=== PATIENT | male | born 1970 | race Caucasian/White ===

== ENCOUNTER 2018-10-01 13:06 | Observation (INO) ==
[2018-10-01] MEDS ORDERED: Ondansetron 4 MG/2 ML VIAL IVP ONE ×2 (13:23→16:21)
[2018-10-01] MEDS ORDERED: 0.9 % Sodium Chloride 1,000 ML IVC ONE (13:23)
[2018-10-01] MEDS ORDERED: *HR* Morphine 2 MG/ML SYRINGE IVP ONE (13:23)
[2018-10-01] MEDS ORDERED: Isovue-370 500 ML BOTTLE IVP ONE (13:24)
[2018-10-01 13:43] LABS: Basophils # 0.1 K/mcL (0.0-0.2); Basophils % 0.3 %; Eosinophils # 0.1 K/mcL (0.0-0.6); Eosinophils % 0.4 %; Hematocrit 42.8 % (37.5-50.1); Hemoglobin 14.1 g/dL (12.9-16.9); Immature Granulocytes % 0.5 % (0-4); Lymphocytes # 2.7 K/mcL (0.6-4.6); Lymphocytes % 17.5 %; Mean Corpuscular HGB Conc 32.9 g/dL (31.6-35.5); Mean Corpuscular Hemoglobin 28.7 pg (28.0-33.3); Mean Corpuscular Volume 87.2 fL (83.0-100.0); Mean Platelet Volume 10.4 fL (9.4-12.4); Monocytes # 1.5 K/mcL (0.0-1.3); Monocytes % 9.8 %; Platelet Count 191 K/mcL (140-400); Red Blood Count 4.91 M/mcL (4.19-5.50); Red Cell Distribution Width 12.1 % (11.5-14.5); Segmented Neutrophils % 71.5 %
[2018-10-01 14:07] LABS: Alanine Aminotransferase 17 Units/L (7-52); Albumin 3.8 g/dL (3.5-5.7); Albumin/Globulin Ratio 1.3 (1.1-2.2); Alkaline Phosphatase 68 Units/L (34-104); Aspartate Amino Transferase 20 Units/L (13-39); BUN/Creatinine Ratio 19 (6-26); Bilirubin,Direct 0.2 mg/dL (0.0-0.2); Bilirubin,Indirect 0.4 mg/dL (0.0-1.2); Bilirubin,Total 0.6 mg/dL (0.3-1.0); Blood Urea Nitrogen 17 mg/dL (6-20); Calcium 8.7 mg/dL (8.6-10.3); Carbon Dioxide 26 mEq/L (23-29); Chloride 101 mEq/L (98-107); Globulin 2.9 g/dL (2.4-3.5); Glucose 119 mg/dL (70-105); Osmolality,Calculated 287 (280-300); Potassium 3.6 mEq/L (3.5-5.1); Sodium 137 mEq/L (136-145); Total Protein 6.7 g/dL (6.4-8.9); eGFR For Non-African Americans > 60 (> 60)
[2018-10-01 14:34] LABS: Bilirubin,Urine Small (Negative); Blood,Urine Negative (Negative); Color,Urine Dark Yellow (Yellow); Glucose,Urine (UA) Normal (Normal); Ketones,Urine Trace mg/dL (Negative); Leukocyte Esterase,Urine Negative (Negative); Nitrite,Urine Negative (Negative); Protein,Urine 30 mg/dL (Neg-Trace); Specific Gravity,Urine > 1.030 (1.010-1.025)
[2018-10-01 14:36] LABS: Bacteria,Urine None Seen per hpf (None-Few); Hyaline Casts,Urine None Seen per lpf (None-Few); RBC,Urine 0-3 per hpf (0-3); Squamous Epithelial Cell,Urine Many per lpf (None-Few); WBC,Urine 0-3 per hpf (0-3)
[2018-10-01 14:38] LABS: Clarity,Urine Slightly Hazy (Clear)
[2018-10-01 14:50] LABS: Calcium Oxalate Crystals,Urine Present; Mucus,Urine Moderate (Few)
[2018-10-01 14:51] LABS: Lipase 8 Units/L (11-82)
--- NOTE | 2018-10-01 14:53 | Emergency Department Note ---
Disposition Clinical Impression: Appendicitis with perforation Disposition: Admitted As Inpatient Condition: Good Time of Disposition: 22:34 Abdominal Pain HPI - General Chief Complaint: ED Abdominal Pain Stated Complaint: Possible Appendicitis Time Seen by Provider: 10/01/18 13:11 Source: patient Mode of arrival: ambulatory Limitations: no limitations Nursing Notes Reviewed: Yes Vital Signs Reviewed: Yes - History of Present Illness HPI Narrative: Patient presenting to the ED with right-sided abdominal pain. Onset was about 48 hours ago. Describes it as sharp, stabbing, located in his right lower quadrant. Movement seems to make it worse. No fever or chills. No chest pain or shortness breath. No previous abdominal surgeries. He is otherwise healthy. Denies taking any medications. No urinary complaints. No diarrhea or constipation. States he also has some pain in his right upper quadrant. Normal appetite. Pain Scale: 0 - Related Data Allergies Allergy/AdvReac Type Severity Reaction Status Date / Time No Known Allergies Allergy Verified 10/01/18 13:11 Review of Systems: As reviewed in the HPI. All other systems reviewed are negative or normal. Abdominal Pain PMH - Past Medical History Medical history: Reports: no medical history Male Surgical History: Reports: orthopedic, other Psychiatric history: Reports: no psych history - Social History Smoking status: Current every day smoker Alcohol use: Reports: occasionally Drug use: Reports: none Physical Exam EYES: [EOMI, clear conjunctiva, PERRLA] HENT: [Normocephalic, atraumatic, moist mucus membranes, normal oropharynx] NECK: [normal inspection, full ROM, trachea midline, no obvious swelling] PULMONARY: [normal lung sounds bilaterally, normal chest rise and fall, no respiratory distress or stridor, no wheezes, no rales, no rhonchi CARDIOVASCULAR: [regular rate, regular rhythm, normal heart sounds, no murmurs, distal extremities are warm and well perfused] GASTROINSTESTINAL: [soft, moderately tender in the right lower quadrant with guarding, non-rigid, non-distended, no guarding, no rebound, normal bowel sounds] GENITOURINARY/RECTAL: [deferred] NEUROLOGIC: [Alert, oriented x3, normal speech, moves all extremities] EXTREMITIES: [Normal inspection, full ROM, no tenderness, no pedal edema, normal capillary refill] MUSCULOSKELETAL: [no gross deformities, atraumatic] SKIN: [No cyanosis, no diaphoresis, normal color, warm, no rash] PSYCHIATRIC: [normal mood and affect] - General General appearance: alert Course Course Narrative: CT scan shows microperforated appendicitis without abscess. He is more comfortable after medication. Was given a dose of Zosyn and we will speak with the on-call acute-care surgeon. Vital Signs Temperature 98.5 F 10/01/18 13:10 Pulse Rate 132 10/01/18 13:10 Respiratory Rate 18 10/01/18 13:10 Blood Pressure 125/82 10/01/18 13:10 O2 Sat by Pulse Oximetry 97 10/01/18 13:10 Temperature 98.4 F 10/01/18 22:04 Pulse Rate 95 10/01/18 22:04 Respiratory Rate 16 10/01/18 22:04 Blood Pressure 109/67 10/01/18 22:04 O2 Sat by Pulse Oximetry 92 10/01/18 22:04 Oxygen Delivery Oxygen Delivery Room Air Abdominal Pain - Lab Data Result diagrams: 10/01/18 13:28 10/01/18 13:28 Lab Results 10/01/18 10/01/18 10/01/18 Range/Units 13:28 13:28 14:24 WBC 15.4 H (4.3-11.1) K/mcL RBC 4.91 (4.19-5.50) M/mcL Hgb 14.1 (12.9-16.9) g/dL Hct 42.8 (37.5-50.1) % MCV 87.2 (83.0-100.0) fL MCH 28.7 (28.0-33.3) pg MCHC 32.9 (31.6-35.5) g/dL RDW 12.1 (11.5-14.5) % Plt Count 191 (140-400) K/mcL MPV 10.4 (9.4-12.4) fL Immature Gran % 0.5 (0-4) % Seg Neutrophils % 71.5 % Lymphocytes % 17.5 % Monocytes % 9.8 % Eosinophils % 0.4 % Basophils % 0.3 % Neutrophils # 11.0 H (1.6-8.9) K/mcL Lymphocytes # 2.7 (0.6-4.6) K/mcL Monocytes # 1.5 H (0.0-1.3) K/mcL Eosinophils # 0.1 (0.0-0.6) K/mcL Basophils # 0.1 (0.0-0.2) K/mcL Sodium 137 (136-145) mEq/L Potassium 3.6 (3.5-5.1) mEq/L Chloride 101 (98-107) mEq/L Carbon Dioxide 26 (23-29) mEq/L BUN 17 (6-20) mg/dL Creatinine 0.89 (0.70-1.30) mg/dL Est GFR ( Amer) > 60 (> 60) Est GFR (Non-Af Amer) > 60 (> 60) BUN/Creatinine Ratio 19 (6-26) Glucose 119 H (70-105) mg/dL Calculated Osmolality 287 (280-300) Calcium 8.7 (8.6-10.3) mg/dL Total Bilirubin 0.6 (0.3-1.0) mg/dL Direct Bilirubin 0.2 (0.0-0.2) mg/dL Indirect Bilirubin 0.4 (0.0-1.2) mg/dL AST 20 (13-39) Units/L ALT 17 (7-52) Units/L Alkaline Phosphatase 68 (34-104) Units/L Serum Total Protein 6.7 (6.4-8.9) g/dL Albumin 3.8 (3.5-5.7) g/dL Globulin 2.9 (2.4-3.5) g/dL Albumin/Globulin Ratio 1.3 (1.1-2.2) Lipase 8 L (11-82) Units/L Urine Color Dark Yellow (Yellow) Urine Clarity Slightly Hazy (Clear) Urine pH 6.0 (5.0-8.0) pH Units Ur Specific [place] > 1.030 H (1.010-1.025) Urine Protein 30 H (Neg-Trace) mg/dL Urine Glucose (UA) Normal (Normal) mg/dL Urine Ketones Trace H (Negative) mg/dL Urine Blood Negative (Negative) Urine Nitrite Negative (Negative) Urine Bilirubin Small H (Negative) Urine Urobilinogen 2.0 H (Normal) mg/dL Ur Leukocyte Esterase Negative (Negative) Urine Microscopic RBC 0-3 (0-3) per hpf Urine Microscopic WBC 0-3 (0-3) per hpf Ur Squamous Epith Cells Many H (None-Few) per lpf Calcium Oxalate Crystal Present Urine Bacteria None Seen (None-Few) per hpf Hyaline Casts None Seen (None-Few) per lpf Urine Mucus Moderate H (Few) Ur Culture Indicated? NO (NO)
[2018-10-01] MEDS ORDERED: Piperacillin/Tazobactam 3.375 GM in Water for inj. (sterile) 20 ML 20 ML IVP ONE (15:07)
--- NOTE | 2018-10-01 15:34 | Emergency Department Note ---
Disposition Clinical Impression: Appendicitis with perforation Disposition: Admitted As Inpatient Condition: Good Referrals: NONE,PCP [Primary Care Provider] - Forms: ED Satisfaction Letter, Work/School Release Time of Disposition: 15:34 General Adult HPI - General Chief complaint: ED Abdominal Pain Stated complaint: Possible Appendicitis Time Seen by Provider: 10/01/18 13:11 Source: patient Mode of arrival: ambulatory Limitations: no limitations - History of Present Illness Pain Scale: 8 - Related Data Allergies Allergy/AdvReac Type Severity Reaction Status Date / Time No Known Allergies Allergy Verified 10/01/18 13:11 Past Medical History - Past Medical History Medical history: Reports: no medical history Psychiatric history: Reports: no psych history - Social History Smoking Status: Current every day smoker Smokeless Tobacco Status: No Alcohol use: Reports: occasionally Drug use: Reports: none Physical Exam - General Limitations: no limitations General appearance: alert Course Vital Signs Temperature 98.5 F 10/01/18 13:10 Pulse Rate 132 10/01/18 13:10 Respiratory Rate 18 10/01/18 13:10 Blood Pressure 125/82 10/01/18 13:10 O2 Sat by Pulse Oximetry 97 10/01/18 13:10 Temperature 98.5 F 10/01/18 13:16 Pulse Rate 86 10/01/18 15:23 Respiratory Rate 16 10/01/18 15:23 Blood Pressure 97/68 10/01/18 15:23 O2 Sat by Pulse Oximetry 96 10/01/18 15:23 Oxygen Delivery Oxygen Delivery Room Air Medical Decision Making - Lab Data Result diagrams: 10/01/18 13:28 10/01/18 13:28 Lab Results 10/01/18 10/01/18 10/01/18 Range/Units 13:28 13:28 14:24 WBC 15.4 H (4.3-11.1) K/mcL RBC 4.91 (4.19-5.50) M/mcL Hgb 14.1 (12.9-16.9) g/dL Hct 42.8 (37.5-50.1) % MCV 87.2 (83.0-100.0) fL MCH 28.7 (28.0-33.3) pg MCHC 32.9 (31.6-35.5) g/dL RDW 12.1 (11.5-14.5) % Plt Count 191 (140-400) K/mcL MPV 10.4 (9.4-12.4) fL Immature Gran % 0.5 (0-4) % Seg Neutrophils % 71.5 % Lymphocytes % 17.5 % Monocytes % 9.8 % Eosinophils % 0.4 % Basophils % 0.3 % Neutrophils # 11.0 H (1.6-8.9) K/mcL Lymphocytes # 2.7 (0.6-4.6) K/mcL Monocytes # 1.5 H (0.0-1.3) K/mcL Eosinophils # 0.1 (0.0-0.6) K/mcL Basophils # 0.1 (0.0-0.2) K/mcL Sodium 137 (136-145) mEq/L Potassium 3.6 (3.5-5.1) mEq/L Chloride 101 (98-107) mEq/L Carbon Dioxide 26 (23-29) mEq/L BUN 17 (6-20) mg/dL Creatinine 0.89 (0.70-1.30) mg/dL Est GFR ( Amer) > 60 (> 60) Est GFR (Non-Af Amer) > 60 (> 60) BUN/Creatinine Ratio 19 (6-26) Glucose 119 H (70-105) mg/dL Calculated Osmolality 287 (280-300) Calcium 8.7 (8.6-10.3) mg/dL Total Bilirubin 0.6 (0.3-1.0) mg/dL Direct Bilirubin 0.2 (0.0-0.2) mg/dL Indirect Bilirubin 0.4 (0.0-1.2) mg/dL AST 20 (13-39) Units/L ALT 17 (7-52) Units/L Alkaline Phosphatase 68 (34-104) Units/L Serum Total Protein 6.7 (6.4-8.9) g/dL Albumin 3.8 (3.5-5.7) g/dL Globulin 2.9 (2.4-3.5) g/dL Albumin/Globulin Ratio 1.3 (1.1-2.2) Lipase 8 L (11-82) Units/L Urine Color Dark Yellow (Yellow) Urine Clarity Slightly Hazy (Clear) Urine pH 6.0 (5.0-8.0) pH Units Ur Specific [place] > 1.030 H (1.010-1.025) Urine Protein 30 H (Neg-Trace) mg/dL Urine Glucose (UA) Normal (Normal) mg/dL Urine Ketones Trace H (Negative) mg/dL Urine Blood Negative (Negative) Urine Nitrite Negative (Negative) Urine Bilirubin Small H (Negative) Urine Urobilinogen 2.0 H (Normal) mg/dL Ur Leukocyte Esterase Negative (Negative) Urine Microscopic RBC 0-3 (0-3) per hpf Urine Microscopic WBC 0-3 (0-3) per hpf Ur Squamous Epith Cells Many H (None-Few) per lpf Calcium Oxalate Crystal Present Urine Bacteria None Seen (None-Few) per hpf Hyaline Casts None Seen (None-Few) per lpf Urine Mucus Moderate H (Few) Ur Culture Indicated? NO (NO) Attestation Statement - Attestation Attestation: I examined this patient and my medical decision-making was reviewed with the Resident Physician. I agree with the documented findings, disposition and treatment plan as described except to the extent set forth below. 48 year old male presents to the eD with complaints of RLQ pain and it appears that he still has a his appendix and ABCT shows a microperforation with apendicitis. He is in acute pain and pain controlled with opiates, blood pressure responding to IVF. Discussed case with Dr. You and he has accepted patient to surgical service. Gladys started
--- NOTE | 2018-10-01 15:52 | Acute Care Surgery H&P ---
Date of Encounter: 10/01/18 Time of Encounter: 15:40 Assessment and Plan (1) Appendicitis with perforation Current Visit: Yes Status: Acute The assessment and plan as outlined above was discussed with the patient and/or family members who expressed understanding and agreement. All questions were answered. The patient has acute appendicitis for at least 3 days. There appears to be evidence of perforation of the appendix. The appendix is discrete on CAT scan and I feel this is amenable to surgical resection. We will plan urgent laparoscopic appendectomy Beni You MD FACS History of Present Illness Chief complaint: Abdominal pain HPI: Mr. Lundy is a 48 year old male Who is been experiencing abdominal pain since Wednesday. Filled very poorly and stayed home from work on and Wednesday. The pain simply was unrelenting and he sought evaluation in the emergency room today. He is anorexic. He had some initial nausea but no vomiting. He has pain with motion area he has localized pain to the right lower quadrant. Upon evaluation in the emergency room he was found to have a significant leukocytosis and CAT scan evidence of perforated appendicitis with no abscess formation to my evaluation of the CAT scan the appendix is discrete and amenable to appendectomy. I have recommended urgent laparoscopic appendectomy with irrigation of the abdominal cavity and pelvis. Past Med Surg Social Fam HX - Past Medical History Medical history: no medical history Psychiatric history: no psych history - Past Surgical History Surgical History: no surgical history - Social History Smoking Status: Current every day smoker Smokeless Tobacco Status: No Alcohol use: occasionally Drug use: none Medications and Allergies Allergy/AdvReac Type Severity Reaction Status Date / Time No Known Allergies Allergy Verified 10/01/18 13:11 Review of Systems All systems PM: The remainder of the systems were reviewed and are negative General Surgery Exam Initial Vital Signs Temp Pulse Resp BP Pulse Ox 98.5 F 132 18 125/82 97 10/01/18 13:10 10/01/18 13:10 10/01/18 13:10 10/01/18 13:10 10/01/18 13:10 - General physical appearance well developed, well nourished, moderate distress, moderate pain - Neck no masses, no bruits, trachea midline, no lymphadectomy, no venous distension - Respiratory normal expansion, normal respiratory effort, clear to percussion, clear to auscultation - Cardiovascular Cardiovascular exam: Present: RRR, distant heart sounds - Abdomen Abdomen general surgery: Present: bowel sounds present, soft, non tender, tender Abdominal Tenderness: Present: RLQ (The patient has both involuntary guarding and rebound tenderness ) - Integumentary Integumentary general surgery: Present: warm and dry, no abnormal pigmentation - Neurologic Present: CN 2-12 grossly intact, normal coordination, normal sensation - Psychiatric Psychiatric general surgery: Present: appropriate, oriented to person, oriented to place, oriented to time, speech is normal, memory intact Results - Labs 10/01/18 13:28 10/01/18 13:28 Abnormal lab results WBC 15.4 K/mcL (4.3-11.1) H 10/01/18 13:28 11.0 K/mcL (1.6-8.9) H 10/01/18 13:28 1.5 K/mcL (0.0-1.3) H 10/01/18 13:28 Glucose 119 mg/dL (70-105) H 10/01/18 13:28 8 Units/L (11-82) L 10/01/18 13:28 Ur Specific [place] > 1.030 (1.010-1.025) H 10/01/18 14:24 30 mg/dL (Neg-Trace) H 10/01/18 14:24 Trace mg/dL (Negative) H 10/01/18 14:24 Small (Negative) H 10/01/18 14:24 2.0 mg/dL (Normal) H 10/01/18 14:24 Ur Squamous Epith Cells Many per lpf (None-Few) H 10/01/18 14:24 Moderate (Few) H 10/01/18 14:24 Diabetes panel 10/01/18 Range/Units 13:28 Sodium 137 (136-145) mEq/L Potassium 3.6 (3.5-5.1) mEq/L Chloride 101 (98-107) mEq/L Carbon Dioxide 26 (23-29) mEq/L BUN 17 (6-20) mg/dL Creatinine 0.89 (0.70-1.30) mg/dL Glucose 119 H (70-105) mg/dL Calcium 8.7 (8.6-10.3) mg/dL AST 20 (13-39) Units/L ALT 17 (7-52) Units/L Alkaline Phosphatase 68 (34-104) Units/L Albumin 3.8 (3.5-5.7) g/dL Calcium panel 10/01/18 Range/Units 13:28 Calcium 8.7 (8.6-10.3) mg/dL Albumin 3.8 (3.5-5.7) g/dL Pituitary panel 10/01/18 Range/Units 13:28 Sodium 137 (136-145) mEq/L Potassium 3.6 (3.5-5.1) mEq/L Chloride 101 (98-107) mEq/L Carbon Dioxide 26 (23-29) mEq/L BUN 17 (6-20) mg/dL Creatinine 0.89 (0.70-1.30) mg/dL Glucose 119 H (70-105) mg/dL Calcium 8.7 (8.6-10.3) mg/dL Adrenal panel 10/01/18 Range/Units 13:28 Sodium 137 (136-145) mEq/L Potassium 3.6 (3.5-5.1) mEq/L Chloride 101 (98-107) mEq/L Carbon Dioxide 26 (23-29) mEq/L BUN 17 (6-20) mg/dL Creatinine 0.89 (0.70-1.30) mg/dL Glucose 119 H (70-105) mg/dL Calcium 8.7 (8.6-10.3) mg/dL Total Bilirubin 0.6 (0.3-1.0) mg/dL AST 20 (13-39) Units/L ALT 17 (7-52) Units/L Alkaline Phosphatase 68 (34-104) Units/L Albumin 3.8 (3.5-5.7) g/dL All other labs normal. - Imaging CT scan - abdomen: image reviewed (I personally reviewed the CAT scan of the abdomen. The patient does have very appendiceal inflammatory changes and fluid, however, there is no abscess formation. The degree of inflammation does not rise to a right lower quadrant phlegmon. We will proceed with surgical resection)
[2018-10-01] MEDS ORDERED: Albuterol 2.5 MG/3 ML NEBULIZER IH ONE (16:20)
[2018-10-01] MEDS ORDERED: Acetaminophen IV 1,000 MG/100 ML INFUS..BTL IVPB ONE (16:20)
[2018-10-01] MEDS ORDERED: Famotidine 20 MG/2 ML VIAL IVP ONE (16:20)
--- NOTE | 2018-10-01 16:20 | Anesthesia Evaluation PreOp ---
Date of Encounter: 10/01/18 Time of Encounter: 16:30 - Past History Planned Operation: Lap Appendectomy Cardiac History: Denies any Significant Hx Pulmonary History: Smoker CREDIT COLLECTION SPECIALIST History: Denies Any Significant HX Other Medical History: Denies Any Significant HX Anesthesia History: No Prior Anesthetic Complications Alcohol Use: occasionally Drug use: none Medications and Allergies Allergy/AdvReac Type Severity Reaction Status Date / Time No Known Allergies Allergy Verified 10/01/18 13:11 - Meds/Allergy Pre-op Review Medications Reviewed: Yes Allergies Reviewed: Yes Beta Blockers on Current Med List: No Anesthesia Results - Labs 10/01/18 13:28 10/01/18 13:28 Anesthesia Exam O2 Sat Height 1.68 m Height 1.68 m Weight 70.125 kg Weight 70.125 kg O2 Sat by Pulse Oximetry 96 O2 Sat by Pulse Oximetry 96 O2 Sat by Pulse Oximetry 97 O2 Sat by Pulse Oximetry 97 Vital Signs Temp Pulse Resp BP Pulse Ox 98.5 F 132 18 125/82 97 10/01/18 13:10 10/01/18 13:10 10/01/18 13:10 10/01/18 13:10 10/01/18 13:10 Height: 5'6 Weight: 154 lbs NPO (# of Hours): MN Pain Scale: 0 - HEENT Pupil (Motor): Pupils equal, EOMI Mallampati: II Teeth: Normal Oral Opening: Greater than 3 - CREDIT COLLECTION SPECIALIST LOC: Oriented CREDIT COLLECTION SPECIALIST Motor: Normal RUE, Normal LUE, Normal RLE, Normal LLE, Normal Face CREDIT COLLECTION SPECIALIST Sensory: Normal: RUE, LUE, RLE, LLE, Face - Cardiac Rhythm: Regular Murmur: None JVD: No Carotid Bruit: No - Pulmonary Breath Sounds: bilateral Clear Respiratory Effort: Symmetrical Anesthesia Assess/Plan ASA Score: 2, E Level of consciousness: Cooperative, Oriented Anesthetic Plan: General Autologous Blood: No Monitoring Plan: Standard Monitors Recovery Plan: PACU (Discussed GA, agrees to proceed)
[2018-10-01] MEDS ORDERED: *HR* HYDROmorphone (PF) 1 MG/ML SYRINGE IVP PRN (16:21)
[2018-10-01] MEDS ORDERED: *HR* Promethazine 25 MG/ML VIAL IVP PRN (16:21)
[2018-10-01] MEDS ORDERED: Dexamethasone 4 MG/ML VIAL ONE (16:24)
[2018-10-01] MEDS ORDERED: *HR* Propofol 200 MG/20 ML VIAL IVP ONE (16:24)
[2018-10-01] MEDS ORDERED: *HR* FentaNYL (PF) 100 MCG/2 ML VIAL ONE (16:24)
[2018-10-01] MEDS ORDERED: Lidocaine -MPF 2% 2 ML VIAL ONE (16:24)
[2018-10-01] MEDS ORDERED: *HR* Rocuronium Bromide 50 MG/5 ML VIAL ONE (16:24)
[2018-10-01] MEDS ORDERED: CefOXitin 2,000 MG VIAL ONE (16:34)
[2018-10-01] MEDS ORDERED: CefOXitin 1,000 MG VIAL ONE (16:35)
[2018-10-01] MEDS ORDERED: Famotidine 20 MG/2 ML VIAL ONE (16:55)
[2018-10-01] MEDS ORDERED: Acetaminophen IV 1,000 MG/100 ML INFUS..BTL ONE (16:55)
[2018-10-01] MEDS ORDERED: Lidocaine -MPF 4% 5 ML AMPUL ONE (17:07)
[2018-10-01] MEDS ORDERED: cefOXitin 2,000 MG in Water for inj. (sterile) 20 ML 20 ML IVP ONE (17:37)
[2018-10-01] MEDS ORDERED: Ketorolac 30 MG/ML VIAL ONE (17:37)
[2018-10-01] MEDS ORDERED: Neostigmine Methylsulfate 3 MG/3 ML SYRINGE ONE ×2 (17:39→17:56)
--- NOTE | 2018-10-01 18:01 | Operative Note ---
Date of procedure: 10/01/18 Pre-op diagnosis: Acute appendicitis Post-op diagnosis: other (Perforated appendicitis with pus and necrosis) Procedure: Laparoscopic appendectomy Anesthesia: PARISH Surgeon: Beni You Was there an assistant county engineer present: No Estimated blood loss (cc): 10 Specimen: Appendix Condition: stable Disposition: PACU Procedure in Detail: After informed consent the patients taking major operative suite placed in supine position given adequate general endotracheal anesthesia. The abdomen was prepped and draped in sterile fashion utilizing ChloraPrep standard draping techniques. Timeout was taken and the patient was identified. I made a vertical midline incision below the umbilicus and dissected down to level of fascia. 2 traction stitches placed. A the abdominal cavity visually and placed a Esparza trocar. This point to 15 mm pressure CO2. I placed a 5 mm trocar in the suprapubic area and a 12 mm trocar in the right upper quadrant. The appendix was identified. It was oriented in the right gutter acutely inflamed and perforated the appendix was covered impossible numbers a large area of necrosis on the appendix. This had not formed a discrete abscess. I was able to elevate the cecum and develop a window between the mesial appendix and the base the cecum. The base the cecum was divided with a gastrointestinal load on the laparoscopic stapler. Skin and excellent technical result and an intact staple line. The appendix was now isolated on its broad mesial appendix. This is divided with a vascular load on the laparoscopic stapler. There was no bleeding. The appendix was removed in a specimen bag. I replaced the umbilical port site and then irrigated with copious amounts of antibiotic containing solution in the pelvis and right gutter. At the end of the irrigation there is no purulence visible no pus was visible at the end of the irrigation. All trochars were removed. Fascia was closed with 0 Vicryl. Skin was closed with 2-0 and 4-0 Vicryl
[2018-10-01] MEDS ORDERED: SUGAMMADEX SODIUM 500 MG/5 ML VIAL IV ONE (18:03)
--- NOTE | 2018-10-01 18:34 | Anesthesia Evaluation Post Op ---
Date of Encounter: 10/01/18 Time of Encounter: 18:35 - Vital Signs Vital Signs: Vital Signs/O2 Sat/Glucose, Most Current Temp Pulse Resp BP Pulse Ox 10/01/18 18:30 78 18 113/73 94 10/01/18 18:20 77 18 118/71 93 10/01/18 18:10 99.4 F 89 18 127/84 92 10/01/18 16:25 29 105/77 10/01/18 15:23 86 16 97/68 96 - Lungs Lungs: Clear Ascult./Percussion - Airway Airway: Non-obstructed - Cardiovascular Regular Rate - Mental Status Mental Status: Alert & Oriented, Answers Appropriately - Pain Pain Scale: 0 - Nausea Vomiting Nausea Vomiting: Not Present - Hydration Hydration: Ice chips - Discharge PostOp Status: Transfer Patient to floor
[2018-10-01] MEDS ORDERED: Ondansetron 4 MG/2 ML VIAL IVP PRN (18:50)
[2018-10-01] MEDS ORDERED: OXYCODONE Oral CONC 10 MG/0.5 ML ORAL.SYG SL PRN (18:50)
[2018-10-01] MEDS: *HR* Heparin 5,000 UNIT/ML VIAL SQ SCH (19:40)
[2018-10-01] MEDS: 0.9 % Sodium Chloride 1,000 ML IVC SCH (19:40)
[2018-10-01] MEDS: *HR* OxyCODONE/APAP 5/325 TABLET PO PRN (23:57)
[2018-10-01] MEDS: Piperacillin/Tazobactam 3.375 GM in 0.9 % Sodium Chloride Mini Bag 100 ML IVPB SCH (23:57)
[2018-10-02] MEDS: *HR* OxyCODONE/APAP 5/325 TABLET PO PRN ×2 (04:11→08:45)
[2018-10-02] MEDS: *HR* Heparin 5,000 UNIT/ML VIAL SQ SCH ×2 (05:27→17:39)
[2018-10-02] MEDS: 0.9 % Sodium Chloride 1,000 ML IVC SCH (08:45)
[2018-10-02] MEDS: Piperacillin/Tazobactam 3.375 GM in 0.9 % Sodium Chloride Mini Bag 100 ML IVPB SCH ×2 (08:45→17:40)
--- NOTE | 2018-10-02 08:49 | Discharge Summary ---
Orders not resulted at time of discharge: Pending orders 10/01/18 18:06 Surgical Pathology [PTH] Routine Date of Encounter: 10/02/18 Time of Encounter: 07:30 - Discharge Diagnosis (1) S/P laparoscopic appendectomy Priority: Primary Status: Acute (2) Appendicitis with perforation Priority: Primary Status: Acute General Surgery Exam Initial Vital Signs Temp Pulse Resp BP Pulse Ox 98.5 F 132 18 125/82 97 10/01/18 13:10 10/01/18 13:10 10/01/18 13:10 10/01/18 13:10 10/01/18 13:10 - General physical appearance well developed, well nourished, no distress, no pain - Eyes PERRL, normal ocular movement - ENT normal mucosa, no congestion - Neck trachea midline, no venous distension - Respiratory normal respiratory effort, clear to auscultation - Cardiovascular Cardiovascular exam: Present: RRR - Abdomen Abdomen general surgery: Present: bowel sounds present, soft, tender (as ex pected post-op) - Incision Incision: Present: clean and dry, intact - Genitourinary Present: normal penis with no external lesions - Integumentary Integumentary general surgery: Present: warm and dry - Neurologic Present: CN 2-12 grossly intact, normal coordination - Musculoskeletal Present: normal posture - Psychiatric Psychiatric general surgery: Present: A&Ox3, appropriate - Hospital Course Hospital course: Mr. Lundy is a 48 year old male - Time Spent with Patient Total time spent providing and/or coordinating discharge services: - Discharge Medications Prescriptions: New OxyCODONE/APAP 5/325 [Percocet 5/325 MG] 1 each PO Q4HR PRN 7 Days #28 tablet PRN Reason: MODERATE PAIN Home Medications: OxyCODONE/APAP 5/325 [Percocet 5/325 MG] 1 each PO Q4HR PRN 7 Days #28 tablet 10/02/18 [Rx] Allergies/Adverse Reactions: Allergy/AdvReac Type Severity Reaction Status Date / Time No Known Allergies Allergy Verified 10/01/18 13:11 Date of admission: 10/01/18 15:37 Primary care physician: PCP NONE Discharging clinician: Lester Cooper Anticipated date of discharge: 10/02/18 Labs on day of discharge: Labs from last 24 hours 10/01/18 10/01/18 10/01/18 14:24 13:28 13:28 WBC 15.4 H RBC 4.91 Hgb 14.1 Hct 42.8 MCV 87.2 MCH 28.7 MCHC 32.9 RDW 12.1 Plt Count 191 MPV 10.4 Immature Gran % 0.5 Seg Neutrophils % 71.5 Lymphocytes % 17.5 Monocytes % 9.8 Eosinophils % 0.4 Basophils % 0.3 Neutrophils # 11.0 H Lymphocytes # 2.7 Monocytes # 1.5 H Eosinophils # 0.1 Basophils # 0.1 Sodium 137 Potassium 3.6 Chloride 101 Carbon Dioxide 26 BUN 17 Creatinine 0.89 Est GFR ( Amer) > 60 Est GFR (Non-Af Amer) > 60 BUN/Creatinine Ratio 19 Glucose 119 H Calculated Osmolality 287 Calcium 8.7 Total Bilirubin 0.6 Direct Bilirubin 0.2 Indirect Bilirubin 0.4 AST 20 ALT 17 Alkaline Phosphatase 68 Serum Total Protein 6.7 Albumin 3.8 Globulin 2.9 Albumin/Globulin Ratio 1.3 Lipase 8 L Urine Color Dark Yellow Urine Clarity Slightly Hazy Urine pH 6.0 Ur Specific [place] > 1.030 H Urine Protein 30 H Urine Glucose (UA) Normal Urine Ketones Trace H Urine Blood Negative Urine Nitrite Negative Urine Bilirubin Small H Urine Urobilinogen 2.0 H Ur Leukocyte Esterase Negative Urine Microscopic RBC 0-3 Urine Microscopic WBC 0-3 Ur Squamous Epith Cells Many H Calcium Oxalate Crystal Present Urine Bacteria None Seen Hyaline Casts None Seen Urine Mucus Moderate H Ur Culture Indicated? NO - Impressions ITS Impressions Abdomen/Pelvis CT 10/01/18 13:24 IMPRESSION: Acute appendicitis with microperforation. Suspected cholelithiasis versus gallbladder sludge. This could be further evaluated by right upper quadrant ultrasound. Findings were discussed with Dr. Jiang, at 3:03 p.m., 10/01/2018. D/ / 10/01/2018 15:10:33 Rashid Batista MD / jones Interpreting Provider: Rashid Batista MD - Patient Status Disposition: Home, Self-Care Functional capacity at discharge: independent ambulation Overall status at discharge: patient is back to baseline - Discharge Instructions Instructions: Laparoscopic Appendectomy (DC) Follow Up With: NONE,PCP [Primary Care Provider] - Beni You MD [Partnered Physician] - - Diet and Activity Activity: other (No heavy lifting or straining >25 lbs) Diet: advance to your usual diet
[2018-10-02 11:07] VITALS: BP 104/68
[2018-10-02] MEDS ORDERED: Ibuprofen 800 MG TABLET PO PRN (13:20)
== END 2018-10-02 19:25 | disposition home or self-care (01) ==
LOC: 3ANU 13:06 → EMEROOARM 13:06 → 3ANU 16:44
PROVIDERS: ADMIT Surgery; ATTEND Surgery